=== PATIENT | female | born 1940 | race African-American/Black ===

== ENCOUNTER 2017-03-15 07:26 | Day surgery (SDC) | payer MEDICARE, MEDICAID ==
[~2017-03-15] VITALS: Ht 149.9 cm; Wt 78.9 kg
[~2017-03-15 07:26] MED LIST: ALBU18HF2 IH; GABA-531 PO; LORA10TA7 PO; OMEP20TA2 PO; SIMV20TA6 PO
[2017-03-15] MEDS ORDERED: CIPROFLOXACIN 0.3% OPHTH SOLN 2.5ML RIGHTEYE NR (08:00)
[2017-03-15] MEDS ORDERED: TROPICAMIDE 1% OPHTH DROPS 15ML RIGHTEYE NR (08:00)
[2017-03-15] MEDS ORDERED: LACTATED RINGERS 1,000 ML IV SCH (08:00)
[2017-03-15] MEDS ORDERED: PHENYLEPHRINE 2.5% OPHTH 15 DROP/ML BOTTLE RIGHTEYE NR (08:00)
[2017-03-15] MEDS ORDERED: CYCLOPENTOLATE HCL 1% OPHTH DROPS 2ML RIGHTEYE NR (08:00)
[2017-03-15] MEDS ORDERED: KETOROLAC TROMETHAMINE 0.5% OPHTH 3ML RIGHTEYE NR (08:00)
[2017-03-15] MEDS ORDERED: BALANCED SALT IRRIG SOLN COMB1 500ML OP ONE (08:15)
[2017-03-15] MEDS ORDERED: HYALURONATE SODIUM 14 MG/ML 0.85ML SYRINGE IO ONE (08:18)
[2017-03-15] MEDS ORDERED: TOBRAMYCIN SULFATE 80MG/2ML 30ML ONE (08:22)
[2017-03-15] MEDS ORDERED: METHYLPREDNISOLONE SOD SUCC 40 MG/ML VIAL ONE (08:22)
[2017-03-15] MEDS ORDERED: ACETAMINOPHEN 500MG TABLET PO PRN (11:45)
[2017-03-15] MEDS ORDERED: ACET-2178 PO (11:45)
[2017-03-15] MEDS ORDERED: DIAM PO (11:47)
[2017-03-15] MEDS ORDERED: ONDANSETRON HCL 4MG/2ML VIAL IV PRN (12:00)
[2017-03-15] MEDS ORDERED: LIDOCAINE HCL 2%/EPINEPHRINE 1:100,000 20 ML VIAL INFIL ONE (13:00)
[2017-03-15] MEDS ORDERED: BUPIVACAINE HCL/PF 0.75% (7.5MG/ML) 10ML ONE (13:00)
[2017-03-15] MEDS ORDERED: TETRACAINE 0.5% OPHTH DROPS 4ML ONE (13:00)
[2017-03-15] MEDS ORDERED: BALANCED SALT IRRIG SOLN 15ML ONE (13:00)
[2017-03-15] MEDS ORDERED: ACETYLCHOLINE CHLORIDE INTRAOCULAR SOLUTION 1:100 ELECTROLYTE DILUENT IO ONE (13:00)
[2017-03-15] MEDS ORDERED: NEO/POLYMYX B SULF/DEXAMETH OPHTH OINT 3.5GM ONE (13:00)
[2017-03-15] MEDS ORDERED: ACETAZOLAMIDE 500MG ER CAPSULE PO SCH (21:00)
== END 2017-03-15 12:45 | disposition home or self-care (01) ==
LOC: OR 07:26
PROVIDERS: ATTEND Ophthalmology
DX: H25.011 Cortical age-related cataract, right eye (principal); K21.9 Gastro-esophageal reflux disease without esophagitis; E66.3 Overweight; Z98.890 Other specified postprocedural states; Z79.899 Other long term (current) drug therapy
CPT/HCPCS: 66982; 88300; J2920; J3260; J3490; J7120; V2632